=== PATIENT | male | born 1955 | race Caucasian/White ===

== ENCOUNTER 2019-07-22 21:27 | Inpatient (IN) | payer MEDICARE, OTHER ==
[~2019-07-22] VITALS: Ht 193 cm; Wt 118.1 kg
--- NOTE | 2019-07-22 22:56 | NUR ---
ARRIVES VIA [facility].
[2019-07-22 23:16] VITALS: BP 116/72; PULSE 101; TEMP 98.7
--- NOTE | 2019-07-22 23:30 | NUR ---
SHELDON GIBBS IN ROOM.
--- NOTE | 2019-07-23 00:46 | NUR ---
PT ALERT AND ORIENTED X4. IV SITE TO RIGHT WRIST WITH IVF INFUSING WITHOUT PROBLEM. SL TO LEFT WRIST WITHOUT REDNESS OR SWELLING. HAS NGT TO LEFT NARE, GREEN DRAINAGE NOTED IN CANNISTER. REPORTS PAIN TO ABDOMEN 6/10, MEDICATED WITH DILAUDID 0.25MG IVP AT THIS TIME. HAS NOT VOIDED SINCE ARRIVAL. HAS BILATERAL LOWER LEG NEUROPATHY WITH MILD EDEMA. NGT TO LIS. HYPOACTIVE BS.
[2019-07-23] MEDS ORDERED: TYLENOL 500MG500 MG PO (01:16)
[2019-07-23] MEDS ORDERED: MOI STIR MM (01:18)
[2019-07-23] MEDS ORDERED: CELEBREX 1100 MG/CAP PO (01:20)
[2019-07-23] MEDS ORDERED: DULCOLAX STOOL100 MG PO (01:24)
[2019-07-23] MEDS ORDERED: CYMBALTA 60MG60 MG PO (01:32)
[2019-07-23] MEDS ORDERED: HCTZ12.5TAB PO (01:33)
[2019-07-23] MEDS ORDERED: PRINIVIL10 MG PO (01:33)
[2019-07-23] MEDS ORDERED: NORCO 325 MG-51 TAB PO (01:34)
[2019-07-23 01:42] LABS: CALCIUM 8.4 mg/dL (8.4-10.2); CREATININE, serum 1.57 (0.66-1.25); MAGNESIUM 1.7 mg/dL (1.6-2.3); POTASSIUM 4.4 mmol/L (3.4-5.0)
[2019-07-23] MEDS ORDERED: LIDODERM 5% PATC1 EA TP (01:48)
[2019-07-23] MEDS ORDERED: GLUCOPHAGE1000 MG PO (01:49)
[2019-07-23] MEDS ORDERED: LYRICA 150MG C150 MG PO (01:50)
[2019-07-23] MEDS ORDERED: MIRALAX PA17 GM/Dose PO (01:50)
[2019-07-23] MEDS ORDERED: ZOLOFT 100MG100 MG PO (01:51)
[2019-07-23] MEDS ORDERED: FLOMAX 0.40.4 MG/CAP PO (01:51)
[2019-07-23] MEDS ORDERED: OPTIVE 0.5%-0.915 ML OP (01:53)
[2019-07-23] MEDS ORDERED: VITAMIN D 400400 IU PO (01:54)
[2019-07-23] MEDS ORDERED: LAMICTAL200 MG PO (01:55)
[2019-07-23] MEDS ORDERED: LEVEMIR100 U/ML SQ (01:55)
[2019-07-23] MEDS ORDERED: PRILOSEC 20MG20 MG PO (01:56)
[2019-07-23] MEDS ORDERED: ZOCOR 40MG40 MG PO (01:56)
[2019-07-23] MEDS ORDERED: VIAGRA100 M1 PO (01:57)
--- NOTE | 2019-07-23 02:15 | NUR ---
BLADDER SCANNED FOR 250CC RESIDUAL.
--- NOTE | 2019-07-23 02:20 | NUR ---
PT VOIDED 250CC OF HAZY ANNE URINE, UA SENT TO LAB.
[2019-07-23 02:32] LABS: COLLECTION METHOD CLEAN CATCH
[2019-07-23 02:43] LABS: MUCOUS Present /lpf; PH 5 (5-8); SQUAMOUS EPITHELIAL 0-2 /hpf; URINE APPEARANCE Hazy; URINE BACTERIA None Seen /hpf; URINE BILIRUBIN Negative (NEGATIVE); URINE BLOOD 1+ (NEGATIVE); URINE COLOR Amber; URINE GLUCOSE 1+ (NEGATIVE); URINE KETONE Trace (NEGATIVE); URINE LEUKOCYTE ESTERASE Negative (NEGATIVE); URINE NITRATE Negative (NEGATIVE); URINE PROTEIN(semi-quant) 1+ (NEGATIVE)
[2019-07-23 04:30] VITALS: BP 109/64; PULSE 90; TEMP 97.5
--- NOTE | 2019-07-23 05:11 | NUR ---
NG with 300cc of green drainage in cannister. Medicated with Dilaudid 0.25mg IVP for pain to abdomen 11/06. BS 176 given S/S insulin at this time.
[2019-07-23 06:31] LABS: BASO # 0.1 (0.0-0.2); BASO % 0.7 % (0.0-2.0); EOS # 0.2 (0.0-0.7); EOS % 1.9 % (0-4.0); GRAN # 4.9 (1.4-6.5); GRAN % 60.8 % (42.2-75.2); HEMOGLOBIN 14.1 g/dl (13.5-18.0); LYMPH # 1.7 (1.2-3.4); LYMPH % 21.4 % (20.0-51.0); MEAN CELL VOLUME 88 fl (80.0-100.0); MEAN CORPUSCULAR HEMOGLOBIN 30 pg (27.0-31.0); MEAN CORPUSCULAR HGB CONC 34 g/dl (33.0-37.0); MEAN PLATELET VOLUME 9.8 fl (7.4-10.4); MONO # 1.2 (0.1-0.6); MONO % 14.8 % (1.7-9.3); PLATELET COUNT 292 K/mm3 (130-400); RED BLOOD COUNT 4.77 M/mm3 (4.20-5.60); REDCELL DISTRIBUTION WIDTH-CV 12.7 % (11.5-14.5)
[2019-07-23 09:00] VITALS: BP 92/66; PULSE 83; TEMP 98.2
--- NOTE | 2019-07-23 09:30 | NUR ---
Patient resting in bed at this time. Patient is alert and oriented, answers questions appropriately. NG tube remains in left nare, no reports of pain and no evidence of irritation to the nare. NG tube remains to LIS, 600ml of dark green liquid in cannister. Patient currently denies pain or nausea at this time and denies further needs. Call light within reach.
--- NOTE | 2019-07-23 10:02 | NUR ---
Patient's lower extremities are cold to the touch. Capillary refill is less than 30 seconds. Pedial pulses are palpable bilaterally.
--- NOTE | 2019-07-23 10:56 | NUR ---
Creative Specialist attended clinical rounds with the team then met with patient to discuss discharge planning. Patient lives alone in [place] and plans to return home upon discharge. Patient sees Dr. Bañuelos at the [place] [facility] in [place] and has his medications mailed to his home from the [facility]. Patient uses canes and a walker at home. Patient also reports he has a ramp leading into his home. Patient reports he is independent with ADLS although sometimes difficult. Patient does not have DPOA-HC established and was not interested at this time. Patient states he has transportation arranged upon discharge. SW to continue to follow as needed.
[2019-07-23 12:06] VITALS: BP 108/60; PULSE 85; TEMP 97.9
--- NOTE | 2019-07-23 12:58 | NUR ---
Patient currently sitting on the edged of bed. Patient reports occasional abdominal cramping but reports it is manageable. Patient last had Dilaudid at 1157.
[2019-07-23 16:14] VITALS: BP 119/65; PULSE 80; TEMP 98.1
--- NOTE | 2019-07-23 17:53 | NUR ---
Patient resting in bed, at bedside. Patient remains alert and oriented, answers questions appropriately. Patient continues to deny pain or nausea at this time. Denies further needs, call light within reach.
--- NOTE | 2019-07-23 20:45 | NUR ---
Pt upset regarding not getting answers from staff when asked. Had incident with PCT regarding blood glucose technique and failure to get BS reading. Pt has not had any of his antidepressants and PTSD meds since 07/20. He reports feeling frustrated and angry. Reviewed abdominal xrays with patient at this time. Obtained BS by this nurse with result 115mg/dl. After much discussion, patient apologized for his behavior.
[2019-07-23 20:47] VITALS: BP 131/72; PULSE 82; TEMP 96.8
--- NOTE | 2019-07-23 21:04 | NUR ---
Medicated with Dilaudid 0.25mg IVP at this time. NGT placement confirmed with saline and air bolus. Retaped NG secure clamp to nose. Will ask ANIMAL CONTROL SUPERVISOR quarry supervisor dimension stone for antianxiety med.
--- NOTE | 2019-07-23 21:30 | NUR ---
Spoke with Rogers GIBBS regarding patients verbal outburst and lack of mood altering meds. New order for Lorazepam IV received.
--- NOTE | 2019-07-23 21:42 | NUR ---
Lorazepam 0.5mg IVP given at this time.
[2019-07-24 00:29] VITALS: BP 120/70; PULSE 83; TEMP 97.6
--- NOTE | 2019-07-24 00:30 | NUR ---
Pt resting well, denies pain and reports feeling better after Lorazepam. XY=[id number]/dl, no SS insulin needed.
[2019-07-24 04:12] VITALS: BP 134/75; PULSE 81; TEMP 97.6
--- NOTE | 2019-07-24 04:30 | NUR ---
Pt has 100cc of hughes liquid foul smelling stool. OB sent. Medicated with IV Dilaudid at this time.
--- NOTE | 2019-07-24 07:00 | NUR ---
Sleeping upon arrival. Easy to wake. NG tube in place to LIS. Dark brown liquid in canister. Lungs clear in upper lobes bilaterally. Diminished in the bases. Bowel sounds are hypoactive. Active in lower left quadrant. I.V. of NS infusing at 150ml/hr.
[2019-07-24 07:13] VITALS: BP 125/65; PULSE 80; TEMP 97.9
[2019-07-24 07:19] LABS: BASO # 0.1 (0.0-0.2); BASO % 1.1 % (0.0-2.0); EOS # 0.3 (0.0-0.7); EOS % 4.7 % (0-4.0); GRAN # 3.2 (1.4-6.5); GRAN % 58.3 % (42.2-75.2); HEMOGLOBIN 12.5 g/dl (13.5-18.0); LYMPH # 1.2 (1.2-3.4); LYMPH % 21.9 % (20.0-51.0); MEAN CELL VOLUME 90 fl (80.0-100.0); MEAN CORPUSCULAR HEMOGLOBIN 30 pg (27.0-31.0); MEAN CORPUSCULAR HGB CONC 33 g/dl (33.0-37.0); MEAN PLATELET VOLUME 9.8 fl (7.4-10.4); MONO # 0.8 (0.1-0.6); MONO % 13.8 % (1.7-9.3); PLATELET COUNT 258 K/mm3 (130-400); RED BLOOD COUNT 4.24 M/mm3 (4.20-5.60); REDCELL DISTRIBUTION WIDTH-CV 12.4 % (11.5-14.5)
[2019-07-24 07:28] LABS: CALCIUM 8.2 mg/dL (8.4-10.2); CREATININE, serum 0.77 (0.66-1.25); POTASSIUM 3.6 mmol/L (3.4-5.0)
--- NOTE | 2019-07-24 07:30 | NUR ---
Patient sitting up in bed. Alert and oriented x 3. Assessment complete. NG to LIS with brown liquid in canister. Fluids infusing per orders via pump. States he has been passing gas this AM. Denies pain at this time. Student at bedside. Denies further needs at this time.
--- NOTE | 2019-07-24 08:00 | NUR ---
Ambulated with patient to bathroom. Patient had signigicant amount of bright red blood in trace amounts of liquidy stool. Patient is passing flatus.
--- NOTE | 2019-07-24 08:10 | NUR ---
Notified Dr. Aparicio patient had a BM with bright red blood present. No new orders. Patient also complaining of sore throat due to NG tube. Chloraseptic spray ordered.
--- NOTE | 2019-07-24 09:30 | NUR ---
NG clamped per orders.
--- NOTE | 2019-07-24 10:00 | NUR ---
Lidocaine patch placed on lower back.
--- NOTE | 2019-07-24 10:00 | NUR ---
Patient called out to nurses station states he is having abdominal pain 5/10 after using restroom. Medications given per orders.
--- NOTE | 2019-07-24 11:20 | NUR ---
Patient states he is having a lot of anxiety, states he typically takes medication at home that helps with anxiety. Notified Dr. Aparicio, new orders entered. Patient given ativan per orders.
[2019-07-24 11:23] VITALS: BP 103/71; PULSE 79; TEMP 98.1
[2019-07-24 15:37] VITALS: BP 141/92; PULSE 86; TEMP 98.9
--- NOTE | 2019-07-24 15:50 | NUR ---
Patient tolerated taking PO meds today without nausea/pain. Would like to advance diet. Has been passing gas today and had x2 BMs today. Contacted Dr. Brown about advancing diet. Patient advanced to clear liquid diet, will discontinue NG tube.
--- NOTE | 2019-07-24 17:56 | NUR ---
Patient has done well throughout the day. Has been up to recliner throughout the day. Tolerating clear liquid diet without nausea/pain. Denies pain at this time. Denies further needs at this time. Will report off to police shift commander.
[2019-07-24 20:07] VITALS: BP 134/71; PULSE 80; TEMP 98.8
[2019-07-25 00:03] VITALS: BP 126/68; PULSE 78; TEMP 98.5
--- NOTE | 2019-07-25 00:30 | NUR ---
Patient has been having increased pain and cramping to his abdomen. Hooked his NG back up to intermittent suction. He continues to have some flatus and bowel sounds are audible but he is has not had anymore stools this evening. Dilauded given. Ecouraged patient to walk around more today. Patient stated having some indegestion but not nausea. No other changes at this time. Call light within reach.
[2019-07-25 03:57] VITALS: BP 128/79; PULSE 68; TEMP 97.6
--- NOTE | 2019-07-25 06:09 | NUR ---
Patient continues to have cramping this morning. No complaints of nausea or indigestions since NG being hooked back up to suction. He had one liquid stool in the night but it was a small amount and was not enought to send to lab. No other changes at this time. Call light within reach.
--- NOTE | 2019-07-25 07:00 | NUR ---
Patient awake and tolerating clear liquid diet well. VSS. Reports passing gas. Bowel sounds are hypoactive.
[2019-07-25 07:16] VITALS: BP 134/75; PULSE 74; TEMP 97.9
[2019-07-25 07:40] LABS: BASO # 0.1 (0.0-0.2); BASO % 1.1 % (0.0-2.0); EOS # 0.3 (0.0-0.7); EOS % 3.6 % (0-4.0); GRAN # 4.5 (1.4-6.5); GRAN % 64.5 % (42.2-75.2); HEMOGLOBIN 11.8 g/dl (13.5-18.0); LYMPH # 1.4 (1.2-3.4); LYMPH % 19.3 % (20.0-51.0); MEAN CELL VOLUME 89 fl (80.0-100.0); MEAN CORPUSCULAR HEMOGLOBIN 29 pg (27.0-31.0); MEAN CORPUSCULAR HGB CONC 33 g/dl (33.0-37.0); MONO # 0.8 (0.1-0.6); MONO % 11.2 % (1.7-9.3); PLATELET COUNT 275 K/mm3 (130-400); RED BLOOD COUNT 4.01 M/mm3 (4.20-5.60); REDCELL DISTRIBUTION WIDTH-CV 12.1 % (11.5-14.5)
[2019-07-25 07:52] LABS: HEMATOCRIT 35.6 % (42.0-52.0)
[2019-07-25 07:54] LABS: CALCIUM 8.3 mg/dL (8.4-10.2); CREATININE, serum 0.71 (0.66-1.25); MAGNESIUM 1.5 mg/dL (1.6-2.3); POTASSIUM 3.8 mmol/L (3.4-5.0)
--- NOTE | 2019-07-25 09:06 | NUR ---
Dr Brown here to see patient.
--- NOTE | 2019-07-25 09:30 | NUR ---
Patient alert and oriented, answers questions appropriately. Abdomen soft, non distended, tender to bilateral lower quads. +Flatus. Bowel sounds active x4 quads. NGT clamped. No c/o at this time.
--- NOTE | 2019-07-25 10:45 | NUR ---
NG tube discontinued. Tip intact. Canister disposed in biohazard bag with solidifying solution added. Patient tolerated procedure well.
--- NOTE | 2019-07-25 11:14 | NUR ---
Initial visit; Patient thanked Assistant Boys Track Coach for looking in on him and offering spirtual care, especially God's blessings.
[2019-07-25 11:16] VITALS: BP 147/84; PULSE 79; TEMP 98.8
[2019-07-25] MEDS ORDERED: ZOCOR 20MG20 MG PO (11:39)
--- NOTE | 2019-07-25 11:47 | NUR ---
Dr Woodall here to see patient.
--- NOTE | 2019-07-25 16:02 | NUR ---
Small bloody bowel movement noted.
[2019-07-25 16:30] VITALS: BP 148/91; PULSE 76; TEMP 98.5
[2019-07-25 20:56] VITALS: BP 130/75; PULSE 78; TEMP 98.7
[2019-07-26] VITALS: BP 141/82; PULSE 76; TEMP 98.2
--- NOTE | 2019-07-26 02:04 | NUR ---
Patient doing well tonight. c/o moderate pain to abd, prn dilaudid given. requested some ativan for anxiety. IV to R wrist discontinued. L hand INT patent and flushes. had bloody stool this evening. accuchecks WNL. no further needs at this time. will continue to monitor.
[2019-07-26 03:34] VITALS: BP 131/79; PULSE 77; TEMP 97.6
[2019-07-26 07:51] LABS: BASO # 0.1 (0.0-0.2); BASO % 0.7 % (0.0-2.0); EOS # 0.3 (0.0-0.7); EOS % 3.8 % (0-4.0); GRAN # 5.4 (1.4-6.5); GRAN % 66.1 % (42.2-75.2); HEMATOCRIT 37.2 % (42.0-52.0); HEMOGLOBIN 12.6 g/dl (13.5-18.0); LYMPH # 1.7 (1.2-3.4); LYMPH % 20.6 % (20.0-51.0); MEAN CELL VOLUME 87 fl (80.0-100.0); MEAN CORPUSCULAR HEMOGLOBIN 30 pg (27.0-31.0); MEAN CORPUSCULAR HGB CONC 34 g/dl (33.0-37.0); MEAN PLATELET VOLUME 9.7 fl (7.4-10.4); MONO # 0.7 (0.1-0.6); MONO % 8.2 % (1.7-9.3); PLATELET COUNT 270 K/mm3 (130-400); RED BLOOD COUNT 4.27 M/mm3 (4.20-5.60); REDCELL DISTRIBUTION WIDTH-CV 12.2 % (11.5-14.5)
[2019-07-26 07:56] VITALS: BP 135/72; PULSE 80; TEMP 97.9
[2019-07-26 08:03] LABS: CALCIUM 8.8 mg/dL (8.4-10.2); CREATININE, serum 0.64 (0.66-1.25); POTASSIUM 3.9 mmol/L (3.4-5.0)
--- NOTE | 2019-07-26 09:30 | NUR ---
Patient alert and oriented, answers questions appropriately. See assessment. Abdomen soft, non tender, non distended. +Flatus. +Bowel movement. Bowel sounds active x4 quads. No c/o at this time.
[2019-07-26 12:00] VITALS: BP 138/88; BP 150/896; PULSE 79; TEMP 97.7
[2019-07-26] MEDS ORDERED: ROXICODONE 55 MG/TAB PO (12:34)
[2019-07-26] MEDS ORDERED: ZOFRAN ODT4 MG PO (12:35)
[2019-07-26 14:46] VITALS: BP 150/96; PULSE 75; TEMP 97.7
--- NOTE | 2019-07-26 16:42 | NUR ---
Discharge instructions reviewed with patient, verbalized understanding. Discharged ambulatory to auto/home with friend at 1630.
== END 2019-07-26 16:30 | disposition home or self-care (01) | DRG 389 ==
LOC: MEDICAL 21:27 → SURG 22:45
PROVIDERS: Nurse Practitioner Family; Physician Assistant; ADMIT Internal Medicine
PROC: 0D9670Z Drainage of Stomach with Drainage Device, Via Natural or Artificial Opening (ICD-10-PCS; principal; 2019-07-24)
DX: K56.600 Partial intestinal obstruction, unspecified as to cause (principal); N17.9 Acute kidney failure, unspecified; E78.5 Hyperlipidemia, unspecified; G89.29 Other chronic pain; F41.9 Anxiety disorder, unspecified; F32.9 Major depressive disorder, single episode, unspecified; F43.10 Post-traumatic stress disorder, unspecified; E87.6 Hypokalemia; N18.9 Chronic kidney disease, unspecified; E11.22 Type 2 diabetes mellitus with diabetic chronic kidney disease; I12.9 Hypertensive chronic kidney disease with stage 1 through stage 4 chronic kidney disease, or unspecified chronic kidney disease; Z66 Do not resuscitate; Z90.49 Acquired absence of other specified parts of digestive tract; Z79.84 Long term (current) use of oral hypoglycemic drugs; Z87.891 Personal history of nicotine dependence
CPT/HCPCS: 99222-AI; 99231-AI; 99233-AI; 99239; C9113; J1170; J1815; J2060; J2405; J3480; J7030